=== PATIENT | male | born 1965 | race Caucasian/White ===

== ENCOUNTER 2025-01-08 09:16 | Emergency (ER) | payer SELFPAY ==
--- NOTE | ~2025-01-08 | CT_ITS ---
EXAMINATION: CTA BRAIN/CAROTID DATE: 01/08/2025 10:25 INDICATION: Headache. Diplopia. TECHNIQUE: Computed tomographic angiography (CTA) of the head and neck was performed with 100 mL Omni paque-350 intravenous contrast. Multiplanar reconstructions and maximum intensity projection 3D-recon structions of the carotid arteries and of the intracranial arteries were created by the technologist on a separate workstation. Precontrast CT of the head was also obtained. Automated exposure control and iterative reconstruction technique were employed.The dose-length product was 1711.46 mGy-cm. COMPARISON: None. FINDINGS: Carotid arteries: Visualized aortic arch and the great vessels arising from the arch are normal in caliber with no hemo dynamically significant stenosis or dissection. There is no evident atherosclerotic plaque with 0% st enosis of the right carotid bulb relative to normal distal artery lumen diameter (NASCET criteria). T here is small amount of atherosclerotic plaque with 0% stenosis of the left carotid bulb relative to normal distal artery lumen diameter. No evident plaque or stenosis along the codominant bilateral dennis tebral arteries. Cervical soft tissues are unremarkable. Mild cervical spondylosis. Respiratory motio n in the visualized upper lungs. Small calcified nodule at the right apex consistent with old granulo matous disease. Head: No acute intracranial hemorrhage, acute infarction or abnormal extra axial fluid collection. Ventricl es are normal and symmetric. No mass/mass effect. No abnormally enhancing brain lesions on the post c ontrast imaging. The orbits and mastoid air cells are normal. Mild mucosal thickening the bilateral e thmoid sinuses. Intracranial arteries Vertebral arteries are codominant. Nonhemodynamically significant atherosclerotic plaque at the bilat eral carotid siphons. There is no hemodynamically significant stenosis in the vertebral, basilar and internal carotid arteries. Both A1 and P1 segments are patent. There are no aneurysms identified. Ce rebral arterial arborization appears symmetric. IMPRESSION: 1. No atherosclerotic plaque with 0% stenosis of the right carotid bulb relative to normal distal art seferino lumen diameter (NASCET criteria). 2. Small amount of atherosclerotic plaque with 0% stenosis of the left carotid bulb relative to alverto l distal artery lumen diameter. 3. No acute intracranial process or abnormally enhancing brain lesions. 4. Unremarkable cerebral CT angiogram with no hemodynamically significant stenosis, aneurysm or throm bosis. Reviewed, dictated and finalized at location A. IMPRESSION: 1. No atherosclerotic plaque with 0% stenosis of the right carotid bulb relativ e to normal distal artery lumen diameter (NASCET criteria). 2. Small amount of atherosclerotic plaque with 0% stenosis of the left carotid bulb relative to normal distal artery lumen diameter. 3. No acute intracranial process or abnormally enhancing brain lesions. 4. Unremarkable cerebral CT angiogram with no hemodynamically significant steno sis, aneurysm or thrombosis.
[2025-01-08 09:24] VITALS: BP 188/98; PULSE 76; RESP 16; TEMP 36.4; O2SAT 97
--- OUTSIDE RECORDS SUMMARY | 2025-01-08 09:24 | XMS_ITS | Data Portability ---
Author Organization [facility] [employer], Main Office Address [address] [place] [address] Care Team Providers Care Chemical Cell Changer Name Role Phone ALEJANDRA GAMINO Primary Care Provider [phone] ALEJANDRA GAMINO Referring Provider [phone] Assessment Encounter Date Assessment Date Assessment LastModified by Organization Details LastModified Time 10/18/2022 10/18/2022 Chest pain EKG shows a normal sinus rhythm normal intervals no acute changes. Echo chest x-ray stress test Hypertension continue current therapy Leg pain exam not that remarkable at does have some back pain from time to time MRI lumbar spine nerve conduction test legs ABIs Follow-up 1 month blood work ordered [email or web address] Not available 10/18/2022 21:35:18 11/22/2022 11/22/2022 Cardiology. Lipitor. 81 mg aspirin daily. Chest pain recurs emergency room. Otherwise see me in 3 months [email or web address] Not available 11/25/2022 14:39:34 04/16/2023 04/16/2023 Blood work reviewed EKG reviewed he is asymptomatic he may proceed with his orthopedic surgery [email or web address] Not available 04/16/2023 18:08:49 Plan of Treatment Reminders Order Date Submit Date Provider Last Modified By Organization Details Last Modified Time Details Appointments None recorded. Lab T4, free, serum 2022 023 [facility] (Lab), [address] [place], [address], 12:38:45 TSH, serum or plasma 2022 023 [facility] (Lab), [address] [place], [address], 3 12:38:45 T3, free, serum or plasma 2022 023 [facility] (Lab), [address] [place], [address], 3 09:13:12 CBC w/ auto diff 2022 023 [facility] (Lab), [address] [place], [address], 3 12:38:45 lipid panel, serum 2022 023 [facility] (Lab), [address] [place], [address], 3 12:38:45 CMP, serum or plasma 2022 023 [facility] (Lab), [address] [place], [address], 3 12:38:45 Referral cardiologis t referral - Please schedule with Dr Padilla only. 2022 023 CLAY Padilla MD, [address] [facility], [place], [address], 3 18:53:05 Procedures None recorded. Surgeries None recorded. Imaging electrocard iogram 2022 023 [email or web address] [facility] [address] [facility] [address], [place], [address], 3 17:33:14 US, echocardiog james 2022 023 [facility] (One Call Scheduling), [address] [place], [address], 3 15:11:38 exercise stress test 2022 023 [facility] (One Call Scheduling), [address] [place], [address], 3 11:34:39 XR, chest, 2 view 2022 023 [facility] (One Call Scheduling), [address] [place], [address], 3 12:06:20 nerve conduction study - NCS B/L legs 2022 023 [facility] Scheduling, [address] [facility] [place], [address], 3 15:11:37 Medication Orders Lipitor 10 mg tablet [address]/Pharmacy #[id number], [address] [place], [address], 3 10:52:48 Patient TargetsNo targets recorded. 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 Referring Physician: Alejandra Gamino, Internal Medicine, Encounter Date: 11/22/2022 Results Created Date Observation Date Name Description Value Unit Range Abnormal Flag Note LastModifiedBy Organization Detail LastModifiedTime 04/13/2004/13/2023 CBC/C OMPLE TE BLD COUNT W/DIF F white blood cells 7.5 x10'3 /uL 4.2-10 .8 Not Available [facility] (Lab) [address] [place], [address], 04/13/2023 15:31:29 04/13/20 23 04/13/2023 CBC/C OMPLE TE BLD COUNT W/DIF F red blood cells 4.90 x10'6 /uL 4.10-5 .80 Not Available [facility] (Lab) [address] [place], [address], 04/13/2023 15:31:29 04/13/2004/13/2023 CBC/C OMPLE TE BLD COUNT W/DIF F hemoglobin 14.3 g/dL 13.2-1 7.0 Not Available [facility] (Lab) [address] [place], [address], 04/13/2023 15:31:29 04/13/2004/13/2023 CBC/C OMPLE TE BLD COUNT W/DIF F hematocrit 43.1 % 39.3-5 0.0 Not Available [facility] (Lab) [address] [place], [address], 04/13/2023 15:31:29 04/13/2004/13/2023 CBC/C OMPLE TE BLD COUNT W/DIF F mean red cell volume 88.0 fL 80.0-9 7.0 Not Available [facility] (Lab) [address] [place], [address], 04/13/2023 15:31:29 04/13/2004/13/2023 CBC/C OMPLE TE BLD COUNT W/DIF F mean red cell hemoglobin 29.2 pg 27.0-3 3.0 Not Available [facility] (Lab) [address] [place], [address], 04/13/2023 15:31:29 04/13/2004/13/2023 CBC/C OMPLE TE BLD COUNT W/DIF F mean RBC HGB concentratio n 33.2 g/dL 31.0-3 6.0 Not Available [facility] (Lab) [address] [place], [address], 04/13/2023 15:31:29 04/13/20 23 04/13/2023 CBC/C OMPLE TE BLD COUNT W/DIF F red cell distribution width 14.2 % 11.8-1 5.5 Not Available [facility] (Lab) [address] [place], [address], 04/13/2023 15:31:29 04/13/2004/13/2023 CBC/C OMPLE TE BLD COUNT W/DIF F platelets 302 x10'3 /uL 150-40 0 Not Available [facility] (Lab) [address] [place], [address], 04/13/2023 15:31:29 04/13/2004/13/2023 CBC/C OMPLE TE BLD COUNT W/DIF F mean platelet volume 9.6 fL 9.0-12 .4 Not Available [facility] (Lab) [address] [place], [address], 04/13/2023 15:31:29 04/13/2004/13/2023 CBC/C OMPLE TE BLD COUNT W/DIF F neutrophils 61.1 % 39.0-7 2.0 Not Available [facility] (Lab) [address] [place], [address], 04/13/2023 15:31:29 04/13/2004/13/2023 CBC/C OMPLE TE BLD COUNT W/DIF F lymphocytes 24.9 % 16.0-4 7.0 Not Available [facility] (Lab) [address] [place], [address], 04/13/2023 15:31:29 04/13/2004/13/2023 CBC/C OMPLE TE BLD COUNT W/DIF F monocytes 8.6 % 5.0-12 .0 Not Available [facility] (Lab) [address] [place], [address], 04/13/2023 15:31:29 04/13/20 23 04/13/2023 CBC/C OMPLE TE BLD COUNT W/DIF F eosinophils 4.2 % 1.0-7. 0 Not Available [facility] (Lab) [address] [place], [address], 04/13/2023 15:31:29 04/13/2004/13/2023 CBC/C OMPLE TE BLD COUNT W/DIF F basophils 0.9 % 0.0-2. 0 Not Available [facility] (Lab) [address] [place], [address], 04/13/2023 15:31:29 04/13/2004/13/2023 CBC/C OMPLE TE BLD COUNT W/DIF F immature granulocytes 0.3 % 0.00-0 .50 Not Available [facility] (Lab) [address] [place], [address], 04/13/2023 15:31:29 04/13/2004/13/2023 CBC/C OMPLE TE BLD COUNT W/DIF F neutrophils, absolute count 4.56 x10'3 /uL 1.5-8. 0 Not Available [facility] (Lab) [address] [place], [address], 04/13/2023 15:31:29 04/13/2004/13/2023 CBC/C OMPLE TE BLD COUNT W/DIF F lymphocytes, absolute count 1.86 x10'3 /uL 1.07-3 .43 Not Available [facility] (Lab) [address] [place], [address], 04/13/2023 15:31:29 04/13/2004/13/2023 CBC/C OMPLE TE BLD COUNT W/DIF F monocytes, absolute count 0.64 x10'3 /uL 0.29-0 .99 Not Available [facility] (Lab) [address] [place], [address], 04/13/2023 15:31:29 04/13/2004/13/2023 CBC/C OMPLE TE BLD COUNT W/DIF F eosinophils, absolute count 0.31 x10'3 /uL 0.02-0 .53 Not Available [facility] (Lab) [address] [place], [address], 04/13/2023 15:31:29 04/13/2004/13/2023 CBC/C OMPLE TE BLD COUNT W/DIF F basophils, absolute count 0.07 x10'3 /uL 0.01-0 .08 Not Available [facility] (Lab) [address] [place], [address], 04/13/2023 15:31:29 04/13/2004/13/2023 CBC/C OMPLE TE BLD COUNT W/DIF F immature granulocytes ,absolute 0.02 x10'3 /uL 0.00-0 .05 Not Available [facility] (Lab) [address] [place], [address], 04/13/2023 15:31:29 04/13/2004/13/2023 CBC/C OMPLE TE BLD COUNT W/DIF F nucleated red blood cells 0.0 % -0 Not Available [facility] (Lab) [address] [place], [address], 04/13/2023 15:31:29 04/13/2004/13/2023 CBC/C OMPLE TE BLD COUNT W/DIF F NRBC# 0.00 x10'3 /uL Not Available [facility] (Lab) [address] [place], [address], 04/13/2023 15:31:29 04/13/2004/13/2023 BASIC METAB OLIC PANEL sodium 138 mmol/ L 137-14 5 Not Available [facility] (Lab) [address] [place], [address], 04/13/2023 16:18:27 04/13/2004/13/2023 BASIC METAB OLIC PANEL potassium 4.1 mmol/ L 3.5-5. 1 Not Available [facility] (Lab) [address] [place], [address], 04/13/2023 16:18:27 04/13/2004/13/2023 BASIC METAB OLIC PANEL chloride 101 mmol/ L 98-107 Not Available [facility] (Lab) [address] [place], [address], 04/13/2023 16:18:27 04/13/2004/13/2023 BASIC METAB OLIC PANEL carbon dioxide 28 mmol/ L 22-30 Not Available [facility] (Lab) [address] [place], [address], 04/13/2023 16:18:27 04/13/2004/13/2023 BASIC METAB OLIC PANEL anion gap 13.1 mmol/ L 14-22 low Not Available [facility] (Lab) [address] [place], [address], 04/13/2023 16:18:27 04/13/2004/13/2023 BASIC METAB OLIC PANEL glucose 94 mg/dL 70-99 Not Available [facility] (Lab) [address] [place], [address], 04/13/2023 16:18:27 04/13/2004/13/2023 BASIC METAB OLIC PANEL BUN 11 mg/dL 8-19 Not Available [facility] (Lab) [address] [place], [address], 04/13/2023 16:18:27 04/13/2004/13/2023 BASIC METAB OLIC PANEL creatinine 0.78 mg/dL 0.66-1 .25 Not Available [facility] (Lab) [address] [place], [address], 04/13/2023 16:18:27 04/13/2004/13/2023 BASIC METAB OLIC PANEL GFR >60 Refer ence Range : Logan ge GFR Healt hy Adult : >60 mL/mi n/1.7 3 m2 Chron ic Kidne y Disea se: 15-60 mL/mi n/1.7 3 m2 Kidne y Failu re: <15/m L/min /1.73 m2 www.n iddk. nih.g ov The MDRD study equat ion has not been valid ated in child josette <18 years of age; pregn ant women ; the elder ly >85 years of age; or in some racia l or ethni c subgr oups, such as Hispa nics. Outsi de the valid ated emmanuel eters , estim ated GFR is less accur ate, requi ring clini shanique judgm ent on a case- by-ca se basis . Clini shanique inter preta tion for other races and ages must be made by the clini sedrick. The MDRD study equat ion has not been valid ated for the evalu ation of serum creat inine relat ed to nutri kristi l statu s or medic ation usage . For perso ns <18 years of age, a pedia tric GFR calcu lator is avail able on the [facility] websi te: https ://alesha bui.maryana ware.o rg/pr evon huaal s/kdo qi/gf r_cal culat or Not Available [facility] (Lab) [address] [place], [address], 04/13/2023 16:18:27 04/13/2004/13/2023 BASIC METAB OLIC PANEL calcium 9.7 mg/dL 8.4-10 .2 Not Available [facility] (Lab) [address] [place], [address], 04/13/2023 16:18:27 04/13/20 23 04/13/2023 HEMOG LOBIN A1C HA1C 5.9 % 4.0-6. 0 Diabe obdulio Scree tamika Crite amanda: <5.7% Consi stent with absen ce of diabe obdulio 5.7-6 .4% Consi stent with incre ased risk for diabe obdulio (pred iabet es) >OR=6 .5% Consi stent with diabe obdulio REFER ENCE: Diabe obdulio Care 2016, 39(Cortés ppl.1 ):s13 -s22 Not Available [facility] (Lab) [address] [place], [address], 04/13/2023 22:22:59 04/18/20 22 04/14/2022 home sleep testi ng (PROC ) No observ ation record ed. [id number] [facility] [address] [place], [address], 08/30/2022 06:08:38 06/05/20 22 06/01/2022 polys omnog james, titra tion study No observ ation record ed. [id number] Not Available 08/30/2022 06:08:38 06/05/20 22 06/01/2022 home sleep testi ng (PROC ) No observ ation record ed. [id number] [facility] Orders [address] [place], [address], 08/30/2022 06:08:38 10/19/19 23 elect rocar diogr am No observ ation record ed. cyahl [facility] Internal Med [address] [facility] [address], [place], [address], 10/18/2022 17:00:33 10/20/19 23 10/18/2022 elect rocar diogr am No observ ation record ed. BARCODE [facility] Internal Med [address] [facility] [address], [place], [address], 10/19/2022 10:12:22 10/26/19 23 10/25/2022 exerc ise stres s test No observ ation record ed. [email or web address] [facility] [address] [place], [address], 11/23/2022 12:33:44 10/26/19 23 10/25/2022 XR, chest , 2 view [facility] [address] [place] [address] [phone] Patitimur t Name: ROLLY POLK Access ion #: [id number] Sex: M : 1964 6 Locati on: MOP Attend ing Physic jamie: JAZZY GAMINO Orderi ng Physic jamie: JAZZY GAMINO Exam Date: 9:48 AM Exam Name: XR CHEST 2V Admitt ing Diagno sis(es ): RADIOL OGY REPORT - FINAL EXAM: XR CHEST 2V HISTOR Y: CHEST PAIN 57-yea r-old male with chest tightn ess. COMPAR SILVANA: None availa ble. TECHNI QUE: 2 views of the chest were perfor med. FINDIN GS: No pneumo thorax , pleura l effusi ons, pulmon jenn edema, or consol idativ e infilt rates. The heart is not enlarg ed. No fractu res are identi fied about the bony thorax . There is mild thorac ic degene rative disc diseas e. There is mildly exagge rated thorac ic kyphos is. IMPRES DARBY: Page 1 of 2 [facility] Suzie t Name: ROLLY POLK Access ion #: [id number] Sex: M : 1964 6 Exam Date: 9:48 AM Exam Name: XR CHEST 2V Admitt ing Diagno sis(es ): No acute intrat horaci c proces s. Create d and electr onical ly signed by: Quinn brown MD Signed Date: 11:03 AM (CT) Dictat ed by: Quinn brown MD DD: 11:03 AM (CT) DT: 11:03 AM (CT) Page [address] (Imaging) [address] [place], [address], 11/23/2022 12:33:45 11/23/19 23 11/14/2022 nerve condu ction study No observ ation record ed. [facility] Scheduling 1 [facility] [place], [address], 11/22/2022 15:11:37 11/23/19 23 10/25/2022 (JONATHAN) ankle brach ial index * No observ ation record ed. [facility] (One Call Scheduling) [address] [place], [address], 11/22/2022 15:11:38 11/23/19 23 10/25/2022 US, echoc ardio gram No observ ation record ed. [facility] (One Call Scheduling) [address] [place], [address], 11/22/2022 15:11:38 12/16/19 23 12/12/2022 US, echoc ardio gram No observ ation record ed. [email or web address] [facility] [address], [place], [address], 04/16/2023 11:05:11 01/10/20 23 01/09/2023 SPECT , myoca rdial perfu darby, singl e No observ ation record ed. [email or web address] [facility] [address], [place], [address], 04/16/2023 11:06:50 04/13/20 23 04/13/2023 elect raquel avendano am No observ ation record ed. BARCODE Not Available 2022 14:55:32 Result Notes Documentation Provider Name and Address Organization Details Recorded Time Xr, Chest, 2 View : [facility] [address] [place] [address] Patient Name: ERICK POLK Sex: M : 1965 Location: [facility] Attending Physician: ALEJANDRA GAMINO Ordering Physician: ALEJANDRA GAMINO Exam Date: 10/25/2022 9:48 AM Exam Name: XR CHEST 2V Admitting Diagnosis(es): RADIOLOGY REPORT - FINAL EXAM: XR CHEST 2V HISTORY: CHEST PAIN 57-year-old male with chest tightness. COMPARISON: None available. TECHNIQUE: 2 views of the chest were performed. FINDINGS: No pneumothorax, pleural effusions, pulmonary edema, or consolidative infiltrates. The heart is not enlarged. No fractures are identified about the bony thorax. There is mild thoracic degenerative disc disease. There is mildly exaggerated thoracic kyphosis. IMPRESSION: Page 1 of 2 [facility] Patient Name: ERICK POLK Sex: M : 1965 Exam Date: 10/25/2022 9:48 AM Exam Name: XR CHEST 2V Admitting Diagnosis(es): No acute intrathoracic process. Created and electronically signed by: Quinn Beckford MD Signed Date: 10/25/2022 11:03 AM (CT) Dictated by: Quinn Beckford MD (CT) (CT) Page 2 of 2 KIRAN Lu [place] [facility] 11/23/2022 12:33:45 Problems Name Problem SNOMED Code Status Onset Date Resolution Date Notes Provider Name and Address Organization Details Recorded Time Eruption 566871454 Active 2021 Not Available [facility] 3 06:54:39 Hypertrig lyceridem ia 495212835 Active 2018 Not Available [facility] 3 06:54:40 Tear of medial meniscus of knee 145395393 Active 2021 Not Available [facility] 3 06:54:40 Pain in left foot 73120917841 9107 Active 2020 Not Available [facility] 3 06:54:40 Osteoarth ritis 791787573 Active 2021 Not Available [facility] 3 06:54:40 Ingrowing toenail 501379650 Active 2021 Not Available [facility] 3 06:54:40 Hyperlipi demia 34570319 Completed KIRAN Cortés, [place] [facility] 3 15:03:28 Essential hypertens ion 66157343 Active 2022 Not Available [facility] 3 06:54:40 Sleep apnea 64277779 Active 2021 Not Available [facility] 3 06:54:40 Fatigue 15899458 Active Not Available [facility] 3 06:54:40 Dystrophi a unguium 52177425 Active 2021 Not Available [facility] 3 06:54:40 Chest pain 44767227 Active 2022 Not Available [facility] 3 06:54:39 Pain in bilateral legs 45091266014 347303 Active 2022 Not Available [facility] 3 06:54:39 Hyperlipi demia 18790825 Active 2022 Not Available [facility] 3 06:54:40 Notes:[facility] home sleep study 04/14/22 AHI = 20, supine AHI = 22 [facility] titration sleep study 06/01/22 sleep onset = 8.5 minutes, REM onset = 48.5 minutes, [employer] medium Vitera full face mask @ 5-20 cmH2O, PLMI = 66 Medical History: Early REM onset Obesity with mod OSAHS, AHI = 20, 04/14/22, on autoCPAP c/o IVRC Hypertension Hypertriglyceridemia PLMD OA Problem Notes None recorded. Procedures Surgical History Date Name Laterality Status Provider Name and Address Organization Details Recorded Time 09/14/19 18 Orthopedic Surgery completed Not Available [facility] 08/30/2022 05:55:53 02/03/20 11 Colonoscopy completed Not Available [facility] 08/31/19 05:55:53 Hernia Repair completed Not Available [facility] 08/30/2022 05:55:53 Rotator cuff surgery completed Not Available [facility] 08/30/2022 05:55:53 Imaging Results None recorded. Procedure Notes None recorded. Medical Equipment None Reported. Allergies No known drug allergies Medications Name Sig Start Date Stop Date Status Note LastModified by Organization Details LastModified Time diltiazem ER 180 mg capsule,24 hr,extende d release Take 1 capsule every day by oral route. active Not Available Not Available No t Available tizanidine 4 mg tablet Take 1 tablet every day by oral route at bedtime. active Not Available Not Available No t Available meloxicam 15 mg tablet TAKE 1 TABLET BY MOUTH ONCE A DAY NEEDED FOR PAIN active Not Available Not Available No t Available lisinopril 20 mg tablet qd 12/05 completed Not Available Not Available Not Available Medrol (Paul) 4 mg tablets in a dose pack Take 1 dose pk by oral route as directed . 10/27 completed Not Available Not Available Not Available bupivacain e HCl 0.5 % (5 mg/mL) injection solution Take 20 mg by injectio n route. 07/19 completed Not Available Not Available Not Available prednisone 20 mg tablet Take 2 tablets every day by oral route for 7 days. 03/22 completed Not Available Not Available Not Available amlodipine 5 mg tablet TAKE 1 TABLET BY MOUTH EVERY DAY active Not Available Not Available No t Available hydrocodon e 10 mg-acetami nophen 325 mg tablet TAKE 1 TABLET BY MOUTH EVERY 6 HOURS NEEDED FOR PAIN active Not Available Not Available No t Available amoxicilli n 500 mg tablet TK 1 T PO TID FOR 7 DAYS active Not Available Not Available No t Available Kenalog 10 mg/mL suspension for injection In office injectio n administ ered by the provider 07/19 completed [facility]: [id number] 94-20 Not Available Not Available Not Available hydrocorti sone 1 % topical cream APPLY TO RASH QID PRN active Not Available Not Available No t Available triamcinol one acetonide 0.1 % topical ointment APPLY TOPICALL Y TO THE AFFECTED AREA EVERY 12 HOURS NEEDED 03/22 completed Not Available Not Available Not Available prednisone 50 mg tablet TAKE 1 TABLET BY MOUTH ONCE A DAY 02/01 completed Not Available Not Available Not Available diclofenac sodium 75 mg tablet,del ayed release Take 1 tablet twice a day by oral route. 04/12 completed Not Available Not Available Not Available mupirocin 2 % topical ointment APPLY TO AFFECTED AREA THREE TIMES A DAY FOR 7 DAYS 04/12 completed Not Available Not Available Not Available Lipitor 10 mg tablet Take 1 tablet every day by oral route. 04/16 completed pt states not taking Not Available Not Available Not Available loratadine 10 mg tablet TK 1 T PO QAM PRN active Not Available Not Available No t Available naproxen 500 mg tablet TAKE 1 TABLET BY MOUTH TWICE DAILY WITH FOOD 02/23 completed Not Available Not Available Not Available amoxicilli n 875 mg-potassi um clavulanat e 125 mg tablet TAKE 1 TABLET EVERY 12 HOURS FOR 10 DAYS 02/17 completed Not Available Not Available Not Available lidocaine (PF) 10 mg/mL (1 %) injection solution In office injectio n administ ered by the provider 06/10 completed [facility]: [id number] Not Available Not Available Not Available Lovaza 1 gram capsule Take 1 capsule twice a day by oral route. active Not Available Not Available No t Available Drysol 20 % topical solution Apply to the bottom of both feet every morning as needed 09/23 completed Not Available Not Available Not Available Vitals Date Recorded Body mass index (BMI) Body height Heart rate Body temperature Body weight Systolic And Diastolic Provider Name and Address Organization Details Last Updated DateTime 3 36.7 kg/m2 177.8 cm 94 /min 98.1 [degF] 645613. 65 g 124/78 mm[Hg] Not Available [facility] 3 05:57:08 Date Recorded Body height Body mass index (BMI) Body weight Body temperature Heart rate Systolic And Diastolic Provider Name and Address Organization Details Last Updated DateTime 3 177.8 cm 35.9 kg/m2 970264. 09 g 97.7 [degF] 95 /min 120/90 mm[Hg] KIRAN Lu [place] [employer] [facility] 3 15:49:09 Date Recorded Body height Body mass index (BMI) Body weight Body temperature Heart rate Systolic And Diastolic Provider Name and Address Organization Details Last Updated DateTime 3 177.8 cm 35.3 kg/m2 505844. 72 g 98.2 [degF] 81 /min 126/86 mm[Hg] KIRAN LuS [place] [employer] [facility] 3 14:14:30 Date Recorded Body mass index (BMI) Body height Heart rate Body temperature Body weight Systolic And Diastolic Provider Name and Address Organization Details Last Updated DateTime 2 34.4 kg/m2 177.8 cm 76 /min 97.3 [degF] 177037. 17 g 120/84 mm[Hg] Not Available [facility] 3 05:57:08 Date Recorded Body height Body mass index (BMI) Body weight Body temperature Heart rate Oxygen saturation Oxygen saturation in Arterial blood by Pulse oximetry Systolic And Diastolic Provider Name and Address Organization Details Last Updated DateTime 3 177.8 cm 36.4 kg/m2 331769. 46 g 97.9 [degF] 86 /min 98 % 98 % 122/84 mm[Hg] Kathryn Carias RN [facility] [employer] [facility] 3 10:22:38 Social History Question Answer Notes LastModified by Organizat ion Details LastModified Time Tobacco Smoking Status Never Smoker Not Available [facility]/30/[facility]22 05:53:49 Do You Have An Advance Directive? No MIGRATION.[id number] 0400 Information not available 08/30/2022 Do You Wear A Helmet When Biking? No MIGRATION.774030 1128 Information not available 08/30/2022 What Is Your Level Of Caffeine Consumption? Moderate MIGRATION.575583 5798 Information not available 08/30/2022 How Much Tobacco Do You Chew? None MIGRATION.874102 9779 Information not available 08/30/2022 In The 14 Days Before Symptom Onset, Have You Had Close Contact With A Laboratory-confir med COVID-19 While That Case Was Ill? No MIGRATION.985202 3741 Information not available 08/30/2022 In The 14 Days Before Symptom Onset, Have You Had Close Contact With A Person Who Is Under Investigation For COVID-19 While That Person Was Ill? No MIGRATION.193297 7167 Information not available 08/30/2022 What Type Of Diet Are You Following? REGULAR MIGRATION.961698 4140 Information not available 08/30/2022 Which Illicit Or Recreational Drugs Have You Used? None MIGRATION.281895 1932 Information not available 08/30/2022 What Is The Highest Grade Or Level Of School You Have Completed Or The Highest Degree You Have Received? [id number] MIGRATION.589409 7285 Information not available 08/30/2022 Have There Been Any Changes To Your Family Or Social Situation? No MIGRATION.825952 3500 Information not available 08/30/2022 What Is The Fluoride Status Of Your Home? Unknown MIGRATION.713550 2317 Information not available 08/30/2022 Are There Any Guns Present In Your Home? Yes MIGRATION.040891 9018 Information not available 08/30/2022 Do You Use Insect Repellent Routinely? No MIGRATION.066204 2610 Information not available 08/30/2022 Where Do You Live? [facility] MIGRATION.144535 3096 Information not available 08/30/2022 Do You Have A Medical Power Of Record Librarian? No MIGRATION.601943 8373 Information not available 08/30/2022 What Was The Date Of Your Most Recent Tobacco Screening? 04/16/2023 [email or web address] Information not available 04/16/2023 Have You Ever Been Counseled For Unhealthy Alcohol Use? No MIGRATION.916345 6194 Information not available 08/30/2022 Do You Have Any Pets? Yes MIGRATION.322186 8357 Information not available 08/30/2022 What Is Your Relationship Status? MIGRATION.956630 9455 Information not available 08/30/2022 Do You Use Your Seat Belt Or Car Seat Routinely? Yes MIGRATION.757522 3586 Information not available 08/30/2022 Do You Have Smoke And Carbon Monoxide Detectors In Your Home? Yes MIGRATION.225730 6842 Information not available 08/30/2022 Are You Passively Exposed To Smoke? No MIGRATION.789382 2830 Information not available 08/30/2022 Are There Any Smokers In Your House? No MIGRATION.693117 6842 Information not available 08/30/2022 How Much Tobacco Do You Smoke? No MIGRATION.411591 5740 Information not available 08/30/2022 What Types Of Sporting Activities Do You Participate In? None MIGRATION.174438 3339 Information not available 08/30/2022 Do You Use Sunscreen Routinely? No MIGRATION.360830 7423 Information not available 08/30/2022 Has Tobacco Cessation Counseling Been Provided? No MIGRATION.753222 4724 Information not available 08/30/2022 How Many Years Have You Smoked Tobacco? 0 MIGRATION.109313 5090 Information not available 08/30/2022 Have You Recently Traveled Abroad? No MIGRATION.486128 2610 Information not available 08/30/2022 Do You Have Any Dietary Restrictions? No MIGRATION.187661 7414 Information not available 08/30/2022 Sex: Male Functional Status Question Answer Note LastModified by Organizat ion Details LastModified Time Do you use any illicit or recreational drugs? No MIGRATION.741316 9135 Information not available 08/30/2022 Do you or have you ever used any other forms of tobacco or nicotine? No MIGRATION.812368 2403 Information not available 08/30/2022 What is your level of alcohol consumption? Occasional MIGRATION.102249 2828 Information not available 08/30/2022 Do you or have you ever used smokeless tobacco? 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 Never used electronic cigarettes MIGRATION.552458 5351 Information not available 08/30/2022 What is your exercise level? Occasional MIGRATION.549801 0136 Information not available 08/30/2022 Mental Status Question Answer Note LastModified by Organizat ion Details LastModified Time Do you feel stressed (tense, restless, nervous, or anxious, or unable to sleep at night)? [id number] MIGRATION.[id number] 6 Information not available 08/30/2022 Family History Relationship Description Onset Age of this Age Resolved Age Notes LastModified by Organization Details LastModified Time Mother Diabetes mellitus MIGRATION.[id number] Not available 08/30/2022 05:55:54 Mother Essential hypertension MIGRATION.578 [id number] Not available 08/30/2022 05:55:55 Mother Malignant tumor of breast deceas ed MIGRATION.861 0243164 Not available 08/30/2022 05:55:55 Father Diabetes mellitus MIGRATION.545 [id number] Not available 08/30/2022 05:55:55 Son Essential hypertension MIGRATION.779 [id number] Not available 08/30/2022 05:55:55 Medical History Condition Response NERVE DISEASE N BLINDNESS N RHEUMATIC FEVER N KIDNEY STONES N BLADDER PROBLEMS N MRSA N OTHER # 1 N POLIO N LUNG DISEASE/DISORDER N RADIATION / CHEMOTHERAPY N COPD N Other # 2 N BLOOD DISEASES N SURGERY N EAR OR HEARING PROBLEMS N MUMPS N BOWEL PROBLEMS N DEPRESSION (INCLUDING POST ) N STROKE/TIA N ULCERS N BENIGN PROSTATIC HYPERPLASIA N MEASLES N MYOCARDIAL INFARCTION N OBESITY N GERD/NAUSEA N ANEURYSM N URINARY/BLADDER/KIDNEY PROBLEMS N CORONARY ARTERY DISEASE (CAD) N ADDICTION CONCERNS N ENDOMETRIOSIS N Impotence N USE OF BLOOD THINNERS N SKIN PROBLEMS N GASTROINTESTINAL DISORDER N PERIPHERAL VASCULAR DISEASE N MUSCLE,JOINT OR BONE PROBLEMS N GASTROINTESTINAL BLEEDING N BLOOD CLOTS N ASTHMA N CATARACTS N ERECTILE DYSFUNCTION N VARICOSITIES N GI PROBLEMS N Low Testosterone N INFERTILITY N AIDS/HIV N CHEMOTHERAPY / RADIATION N LIVER DISEASE N MALE HYPOGONADISM N HYPERTENSION Y Deficiency N ANXIETY DISORDER N BLOOD TRANSFUSION N ANEMIA/BLOOD DISORDER N CHRONIC EAR INFECTIONS N BRONCHITIS N TUBERCULOSIS N GLAUCOMA N FOOT PROBLEM N DIVERTICULITIS N SLEEP APNEA N CHICKENPOX N INFECTIOUS DISEASE N HEART ARRHYTHMIA N PROSTATE N INSOMNIA N HIGH CHOLESTEROL / HYPERLIPIDEMIA Y HYPERTHYROIDISM N EYE PROBLEMS N NEUROLOGICAL PROBLEMS N EDEMA N CHRONIC PAIN SYNDROME N HYPOTHYROIDISM N CAROTID BLOCKAGE N CONSTIPATION N BACK / NECK PROBLEMS N HAVE YOU BEEN HOSPITALIZED OR SEEN IN [facility] ER IN THE PAST YEAR ? N ATHEROSCLEROSIS N BREAST PROBLEMS N DIALYSIS N ECZEMA N OSTEOPOROSIS N ARTHRITIS N APPENDICITIS N DIABETES, TYPE N BAD TEETH N ENT N HEARTBURN / REFLUX N AUTISM SPECTRUM DISORDER (ASD) N HEPATITIS / LIVER DISEASE N GOUT N SLEEP DISORDER N ALZHEIMER'S DISEASE N Brain Problems N HERPES N DEMENTIA N HEADACHES/MIGRAINES N SEIZURES/EPILEPSY N VASCULAR DISEASE N PACEMAKER N Blood Disorder N DIZZINESS N HEART DISEASE/HEART PROBLEMS N KIDNEY DISEASE N MULTIPLE SCLEROSIS N CARDIAC ARRHYTHMIA N CANCER: SPECIFY N ATRIAL FIBRILLATION N Gall Stones N PULMONARY EMBOLISM N AUTOIMMUNE DISEASE N Immunizations Vaccine Type Date Status Note Provider Nam e and Address Organization Details Recorded Time COVID-19, mRNA, LNP-S, PF, 30 mcg/0.3 mL dose 12/13/2020 completed Not Available [facility] 3 06:54:40 COVID-19, mRNA, LNP-S, PF, 30 mcg/0.3 mL dose 11/22/2020 completed Not Available [facility] 3 06:54:40 Past Encounters Encounter ID Performer Location Encounter Start Date Encounter Closed Date Diagnosis/Indication Diagnosis SNOMED-CT Code Diagnosis ICD10 Code Diagnosis Note [id number] Alejandra Gamino MD [facility] [place] [address] [address] 09/23/2020 00:00:00 09/23/2020 10:09:39 [id number] Alejandra Gamino MD [facility] Internal [facility] [address] [place] [address] [address] [address] 10/27/2020 00:00:00 11/21/2020 15:02:09 [id number] [facility] [place] [address] [place] [address] 12/16/2020 00:00:00 12/16/2020 09:48:13 [id number] Alejandra Gamino MD [facility] Internal [facility] [address] [address] 02/23/2021 00:00:00 02/23/2021 22:42:08 [id number] Alejandra Gamino MD [facility] Internal [facility] [address] [address] 04/18/2021 00:00:00 04/18/2021 22:14:44 [id number] Alejandra Gamino MD [facility] [address] [place] [address] 05/31/2021 00:00:00 06/01/2021 22:51:17 [id number] Chino Box MD [facility] [place] [address] [place] [address] 06/09/2021 00:00:00 06/09/2021 11:42:02 [id number] Alejandra Gamino MD [facility] Internal [facility] [address] [address] 06/10/2021 00:00:00 07/03/2021 23:00:48 [id number] Chino Box MD [facility] [place] [address] [place] [address] 06/21/2021 00:00:00 06/21/2021 14:22:13 [id number] Chino Box MD [facility] [place] [address] [place] [address] 07/19/2021 00:00:00 07/19/2021 14:16:36 [id number] Jesu Hills MD [facility] [place] [address] [place] [address] 08/22/2021 00:00:00 09/19/2021 14:40:22 [id number] Jesu Hills MD [facility] [place] [address] [place] [address] 09/19/2021 00:00:00 09/19/2021 14:33:47 [id number] Alejandra Gamino MD [facility] Internal Med [facility] [address] [facility], [address] [address] 11/21/2021 00:00:00 11/28/2021 14:04:03 [id number] [facility] [place] [address] [place] [address] 02/13/2022 00:00:00 02/14/2022 11:51:13 [id number] Alejandra Gamino MD [facility] Internal [facility] [address]43 [facility], [address] [address] 03/22/2022 00:00:00 03/22/2022 10:44:28 [id number] Alejandra Gamino MD [facility] Internal [facility] 15 [address] [facility], [address] [address] 04/12/2022 00:00:00 04/12/2022 21:38:47 [id number] Alejandra Gamino MD [facility] Internal [facility] [address] [facility], [address] [address] 08/09/2022 00:00:00 08/09/2022 21:48:14 [id number] Alejandra Gamino MD [facility] 15 2043 [facility], [address] [address] 10/18/2022 15:15:49 10/18/2022 17:14:46 Essential hypertension 45907310 I10 Chest pain 72624049 R07. 9 Pain in bi lateral legs 5219706818 1457563 M79.604 [id number] Alejandra Gamino MD [facility] Internal Med [facility] [address] [facility], [facility] [address] [place] [address] 11/22/2022 13:49:18 11/22/2022 15:06:36 Essential hypertension 19463250 I10 Hyperlipidemia 67348305 E78.5 Chest pain 78564766 R07. 9 [id number] Alejandra Gamino MD [facility] Internal Med [facility] [address] [facility], [facility] [address] [place] [address] 04/16/2023 10:13:06 04/16/2023 11:15:34 Essential hypertension 81684974 I10 Hyperlipidemia 15785261 E78.5 Pre-surger y evaluation 505902288 Z01.818 Health Concerns Section Related Observation LastModified by Organization Detai ls LastModified Time None Recorded Concern Status LastModified by Organization Details LastModified Time None Recorded Advance Directives Directive N: Payers Insurance Date Sequence Insurance Name Policy Number Policy Shanks Covered Member ID Shanks Member ID Guarantor Name 10/23/2023 [facility] Erick Polk SELF SELF Erick Polk 12/13/2023 1 [facility] (POS II) [id number] Erick Polk [id number] Erick Polk Notes Date Note Type Note Provider Name and Address Organization Details Recorded Time 10/18/2022 text/html 1. He has been h ave some centralized chest pain and pressure for several weeks not escalating comes on with exertion goes away with rest but not always coming at the time of exertion. He has not had any syncope or presyncope.2. He has been having pain in his legs at the end of the day during the day when he is working there fine but he says once he is done they does feel wiped out3. Hypertension no headache no dizziness Alejandra Gamino MD [address] [facility], [place], [address], [facility] [email or web address] 10/18/2022 21:35:33 11/22/2022 text/html Chest pain stres s test or Juan Diego depression has 1 episode sinceBlood work LDLs high will start LipitorChest x-ray unremarkableEcho pending Alejandra Gamino MD [address], [address], [place], [address], [facility] [employer] [facility] 11/25/2022 14:39:50 04/16/2023 text/html going to have orthopedic surgery no chest pain or shortness of breath Alejandra Gamino MD [address], [address], [place], [address], [facility] [employer] [facility] 04/16/2023 18:09:10
--- OUTSIDE RECORDS SUMMARY | 2025-01-08 09:24 | XMS_ITS | Referral Summary ---
Author Organization [facility] Address [address] [address] Care Team Providers Care Corrugator Operator Name Role Phone Ad Gamino MD Primary Care Provider + [phone] Allergies No known active allergies Medications amLODIPine (NORVASC) 5 mg tablet Take 1 tablet (5 mg total) by mouth daily Active atorvastatin (LIPITOR) 20 mg tablet Take 1 tablet (20 mg total) by mouth daily 12/04/2023 Active clopidogreL (PLAVIX) 75 mg tablet Take 1 tablet (75 mg total) by mouth daily 12/04/2023 Active aspirin 81 mg chewable tablet Take 1 tablet (81 mg total) by mouth daily 11/01/2023 Active loratadine (CLARITIN) 10 mg tablet Take 1 tablet (10 mg total) by mouth daily Active Social History Tobacco Use Types Packs/Day Years Used Date Smoking Tobacco: Never Tobacco Cessation:Counseling Given: Not Answered AUDIT-C Answer Date Recorded Frequency of Alcohol Consumption Not on file 01/22/2024 Q2: How many drinks containi ng alcohol do you have on a typical day when you are drinking? 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 Gender Identity Not on file Sexual Orientation Not on file Last Filed Vital Signs Vital Sign Reading Time Taken Comments Blood Pressure 141/83 01/22/2024 8:32 AM CDT Pulse 71 01/22/2024 8:32 AM CDT Temperature 36.5 C (97.7 F) 01/22/2024 7:34 AM CDT Respiratory Rate 16 01/22/2024 8:32 AM CDT Oxygen Saturation 97% 01/22/2024 8:32 AM CDT Inhaled Oxygen Concentration - - Weight 104.3 kg (230 lb) 01/22/2024 7:34 AM CDT Height 180.3 cm (5' 11) 01/22/2024 7:34 AM CDT Body Mass Index 32.08 01/22/2024 7:34 AM CDT Plan of Treatment Not on file Goals Goal Patient Goal Type Associated Problems Recent Progress Patient-Stated? Author CCM Chronic Pain Care Plan Chronic Care Management On track(2023 7:36 AM CDT) Xena Miller RN Note: Problem: Chronic Pain Goals: 1. Minimize further functional decline 2. Maximize quality of life 3. Control pain Strategies: - Activity/exercise program recommendation - Conservative stepwise pain medicine strategy with multi-disciplinary approach - Recommend healthy lifestyle strategies and compensatory methods as needed Insurance [facility] [employer] Care Teams Corrugator Operator Relationship Specialty Start Date End Date Ad Gamino MD PCP - General 01/22/17
--- OUTSIDE RECORDS SUMMARY | 2025-01-08 09:24 | XMS_ITS | Clinical Summary ---
Author Organization [facility] Address [address] [address] Care Team Providers Care [employer]ed [employer] Boards Router Name Role Phone Ad Gamino MD Primary Care Provider + [phone] Allergies No known active allergies Medications amLODIPine [...] (10 mg total) by mouth daily Active Surgical History Surgery Date Site/Laterality Comments CO NJX AA&/STRD TFRML EPI CERVICAL/THORACIC 1 LEVEL Corticosteroid Inj Transforaminal Approach Cervical W/ Fluoroscopic Guidance - (Added by TW Conv) CO INJ CERV/THORAC,W/WO CNTRST Corticosteroid Injection Interlaminar Approach Cervical - (Added by TW Conv) SHOULDER SURGERY TOTAL KNEE ARTHROPLASTY Medical History Medical History Date Comments Closed fracture of metatarsal bone Metatarsal fracture - (Added by TW Conv) Personal history of other di seases of the musculoskeletal system and connective tissue History of rotator cuff tear - (Added by TW Conv) Chest pain Hypertension Arthritis Headache Family History Medical History Relation Name Comments Arthritis Father Family history of arthritis - (Added by TW Conv) Cancer Father Family history of malignant neoplasm - (Added by TW Conv) Diabetes Father Family history of diabetes mellitus - (Added by TW Conv) Heart disease Father Family history of cardiac disorder - (Added by TW Conv) Kidney disease Father Family histor y of kidney disease - (Added by TW Conv) Arthritis Mother Family history of arthritis - (Added by TW Conv) Diabetes Mother Family history of diabetes mellitus - (Added by TW Conv) Heart disease Mother Family history of cardiac disorder - (Added by TW Conv) Hypertension Mother Family history of hypertension - (Added by TW Conv) Relation Name Status Comments Father Mother Social History Tobacco Use Types Packs/Day Years [...] on file Legal Sex Male 1:17 PM RISK MGR Gender Identity Not on file Sexual Orientation Not on file Obstetrics History Last Filed Vital Signs Vital Sign Reading [...] 01/22/2024 7:34 AM CDT Plan of Treatment Health Maintenance Due Date Last Done Comments Colon Cancer Screening-Colonoscopy 1964 Depression Screening 1964 Hepatitis C Screening 1964 Prostate Cancer Screening-PSA 1964 DTaP/Tdap/Td Vaccine (1 - Tdap) 1975 Hepatitis B Screening 1982 Regular Well Visit/Exam 18-64 1982 Pneumococcal vaccine <65 (1 of 2 - PCV) 1983 Zoster Vaccine (1 of 2) 2014 Covid-19 Vaccine ( season) 2024, 11/22/2020 Influenza Vaccine (Season Ended) 2025 Goals Goal Patient Goal Type Associated Problems [...] strategies and compensatory methods as needed Insurance [facility] Care Teams Printed Circuit Boards Router Relationship Specialty Start Date End Date Ad Gamino MD PCP - General 01/22/17
--- OUTSIDE RECORDS SUMMARY | 2025-01-08 09:24 | XMS_ITS | Data Portability ---
Author Organization HARLEEN VENESSAFrieda Alvares Address [address] [facility] [place] [address] Care Team Providers Care Med Dir Name Role Phone ALEJANDRA GAMINO Primary Care Provider Assessment Encounter Date Assessment Date Assessment LastModified by Organization Details LastModified Time 10/29/2023 10/29/2023 Obesity caloric restriction healthy life style instructions provided. Hypertension continue current therapy blood pressure controlled. Neck pain refer to pain management at [facility] Dr. Guzman who the patient saw before. Obtain records from previous clinic. Follow-up with me in 6-month [email or web address] Not available 10/30/2023 08:24:39 04/17/2024 04/17/2024 blood work. Healthy lifestyle care instructions. Old records so that we can see about immunizations and screenings. Follow up in 4 months. [email or web address] Not available 05/05/2024 21:08:46 Plan of Treatment Reminders Order Date Submit Date Provider Last Modified By Organization Details Last Modified Time Details Appointments None recorded. Lab CBC w/ auto diff 2023 024 [email or web address] [facility], [address], [place], [address], 18:12:55 CMP, serum or plasma 2023 024 CLAY [facility], [address], [place], [address], 4 09:24:13 lipid panel, serum 2023 024 CLYA [facility], [address], [place], [address], 4 09:24:13 CBC w/ auto diff 2023 024 CLAY [facility], [address], [place], [address], 4 10:43:31 CMP, serum or plasma 2023 024 CLAY [facility]man, [address], [place], [address], 4 11:01:18 lipid panel, serum 2023 024 CLAY Aleman, [address], [place], [address], 4 18:41:17 TSH, ultra-sens itive, serum 2023 024 schuyler Aleman, [address], [place], [address], 4 17:55:28 T3, free, serum or plasma 2023 024 schuyler Aleman, [address], [place], [address], 4 17:55:28 unlisted lab - T4, free 2023 024 schuyler Aleman, [address], [place], [address], 17:55:28 Referral None recorded. Procedures None recorded. Surgeries None recorded. Imaging None recorded. Medication Orders None recorded. Patient TargetsNo targets recorded. Patient Instructions Encounter Date Encounter Id Patient Instructions Last Modified By Organization Details Last Modified Time 10/29/2023 [id number] A healthy lifestyle: care instructions Not available 10/29/2023 17:55:28 04/17/2024 [id number] A healthy lifestyle: care instructions [email or web address] Not available 04/17/2024 18:12:55 Reason for Referral None Reported. Results Created Date Observation Date Name Description Value Unit Range Abnormal Flag Note LastModifiedBy Organization Detail LastModifiedTime 10/31/19 24 10/31/2023 XR, chest No observ ation record ed. [address] [place], [address], 11/01/2023 09:03:03 10/31/19 24 10/31/2023 CT, angio gram, head + neck, w/wo contr ast No observ ation record ed. [address] [place], [address], 11/01/2023 09:03:04 10/31/19 24 10/31/2023 CT, angio gram, head, w/wo contr ast No observ ation record ed. [address] [place], [address], 11/01/2023 09:03:04 10/31/19 24 10/31/2023 CT, brain , w/o contr ast No observ ation record ed. [address] [place], [address], 11/01/2023 09:03:04 05/26/20 24 05/22/2024 cardi ac stres s test No observ ation record ed. [facility] [address], [place], [address], 05/28/2024 13:15:24 Result Notes None recorded. Problems Name Problem SNOMED Code Status Onset Date Resolution Date Notes Provider Name and Address Organization Details Recorded Time Essential hypertension 53890523 Active 2023 TANIA Cortés [place] - [facility] 16:41:14 Neck pain 21460753 Active 2023 TANIA Cortés, [place] - [facility] 16:41:20 History of transient ischemic attack 619292574 Active 2023 Alejandra Gamino MD Attn: Linh pina,[address] [facility], [place], [address], [facility] - [facility] 21:09:04 Hyperlipidemia 03449444 Active 2023 Alejandra Gamino MD Attn: Linh pina,[address] [facility], [place], [address], [facility] - [facility] 21:09:05 Obesity 105490084 Active 2023 Alejandra Gamino MD Attn: Linh pina,[address] [facility], [place], [address], [facility] - [facility] 21:09:07 Obstructive sleep apnea syndrome 01795388 Active 2023 Alejandra Gamino MD Attn: Linh pina,[address] [facility], [place], [address], [facility] - [facility] 21:09:20 Problem Notes None recorded. Procedures Surgical History Date Name Laterality Status Provider Name and Address Organization Details Recorded Time Hernia Repair completed Radha Box MA [facility] 10/29/2023 16:38:14 Knee Surgery completed Radha Box MA [facility] 10/29/2023 16:38:22 Imaging Results None recorded. Procedure Notes None recorded. Medical Equipment None Reported. Allergies No known drug allergies Medications Name Sig Start Date Stop Date Status Note LastModified by Organization Details LastModified Time atorvastatin 20 mg tablet TAKE 1 TABLET BY MOUTH EVERY DAY active Not Available Not Available No t Available clopidogrel 75 mg tablet TAKE 1 TABLET BY MOUTH EVERY DAY active Not Available Not Available No t Available amlodipine 5 mg tablet TAKE 1 TABLET BY MOUTH EVERY DAY active Not Available Not Available No t Available hydrocodone 10 mg-acetaminop hen 325 mg tablet TAKE 1 TABLET BY MOUTH EVERY 6 HOURS NEEDED FOR PAIN 10/28 completed Not Available Not Available Not Available aspirin 81 mg chewable tablet TAKE 1 TABLET BY MOUTH EVERY DAY active Not Available Not Available No t Available Vitals Date Recorded Body weight Body mass index (BMI) Body height Heart rate Oxygen saturation Oxygen saturation in Arterial blood by Pulse oximetry Systolic And Diastolic Provider Name and Address Organization Details Last Updated DateTime 720835. 91 g 34.6 kg/m2 180.34 cm 86 /min 96 % 96 % 118/78 mm[Hg] Radha Box MA [facility] 4 16:42:03 Date Recorded Body height Body mass index (BMI) Body weight Heart rate Oxygen saturation Oxygen saturation in Arterial blood by Pulse oximetry Systolic And Diastolic Provider Name and Address Organization Details Last Updated DateTime 180.34 cm 33.2 kg/m2 914570. 98 g 91 /min 97 % 97 % 122/84 mm[Hg] Gabbi Agustin MA [facility] 15:52:08 Social History Question Answer Notes LastModified by Organizat ion Details LastModified Time Tobacco Smoking Status Never Smoker Radha Box MA [facility], [facility] 10/29/2023 16:36:57 Do You Have An Advance Directive? No Information n ot available 10/29/2023 Are You Blind Or Do You Have Difficulty Seeing? No Information n ot available 10/29/2023 What Is Your Level Of Caffeine Consumption? Moderate Information not available 10/29/2023 In The 14 Days Before Symptom Onset, Have You Had Close Contact With A Laboratory-confirm ed COVID-19 While That Case Was Ill? No Information n ot available 04/17/2024 In The 14 Days Before Symptom Onset, Have You Had Close Contact With A Person Who Is Under Investigation For COVID-19 While That Person Was Ill? No Information not available 04/17/2024 Have You Been To An Area Known To Be High Risk For COVID-19? No Information not available 04/17/2024 Are You Deaf Or Do You Have Serious Difficulty Hearing? No Information not available 10/29/2023 What Type Of Diet Are You Following? REGULAR Information n ot available 10/29/2023 Are There Any Guns Present In Your Home? No Information not available 10/29/2023 What Was The Date Of Your Most Recent Tobacco Screening? 04/17/2024 Information not available 04/17/2024 What Is Your Relationship Status? Information not available 10/29/2023 Do You Use Your Seat Belt Or Car Seat Routinely? Yes Information not available 10/29/2023 Do You Have Smoke And Carbon Monoxide Detectors In Your Home? Yes Information not available 10/29/2023 Do You Use Sunscreen Routinely? Yes Information not available 10/29/2023 Has Tobacco Cessation Counseling Been Provided? No Information not available 10/29/2023 Sex: Male Functional Status Question Answer Note LastModified by Organizat ion Details LastModified Time Do you use any illicit or recreational drugs? No Information not available 10/29/2023 Do you or have you ever used any other forms of tobacco or nicotine? No Information not available 10/29/2023 What is your level of alcohol consumption? Occasional Information not available 10/29/2023 Are you currently employed? Yes Information not available 10/29/2023 Are you able to care for yourself? Yes Information not available 10/29/2023 What is your occupation? [employer] Information not available 10/29/2023 What is your exercise level? Moderate Information not available 10/29/2023 Mental Status Question Answer Note LastModified by Organization D etails LastModified Time Do you feel stressed (tense, restless, nervous, or anxious, or unable to sleep at night)? [id number] Information not available 10/29/2023 Family History Nothing Reported. Medical History Condition Response Coronary Artery Disease N Other N High Blood Pressure Y Atrial Fibrillation N Thyroid Problems N Kidney or Bladder Problems N GI Problems N Depression N COPD N Blood Clots N Skin Problems N Anemia N Heart Attack (MN) N Anxiety Disorder N Diabetes N Muscle, Joint, or Bone Problems N Seizures/Epilepsy N Acid Reflux (GERD) N Cancer N Stroke N Asthma N Allergies Y High Cholesterol Y Hepatitis N Liver Disease N Headaches N Osteoporosis N Heart Failure N Immunizations Vaccine Type Date Status Note Provider Nam e and Address Organization Details Recorded Time COVID-19, mRNA, LNP-S, PF, 30 mcg/0.3 mL dose 11/22/2020 completed Lizeth Alexander [place], [place] - [facility] 05/09/2024 10:24:21 COVID-19, mRNA, LNP-S, PF, 30 mcg/0.3 mL dose 12/13/2020 completed Lizeth Alexander MA [facility], [place] - [facility] 05/09/2024 10:24:21 Past Encounters Encounter ID Performer Location Encounter Start Date Encounter Closed Date Diagnosis/Indication Diagnosis SNOMED-CT Code Diagnosis ICD10 Code Diagnosis Note [id number] Alejandra Gamino MD [facility] - [place] [address] [place] [address] 10/29/2023 15:46:36 10/29/2023 17:34:38 Obesity 384426841 E66.9 Essential hypertension 94770316 I10 Neck pain 72776473 M54.2 Body mass index 30+ - obesity 276482150 Z68.30 [id number] Alejandra Gamino MD [facility] - [place] [address] [place] [address] 04/17/2024 14:31:33 04/17/2024 17:04:20 Obesity 468608796 E66.9 Essential hypertension 23228625 I10 Hyperlipidemia 84456981 E78.5 History of transient ischemic attack 257066387 Z86.73 Obstructiv e sleep apnea syndrome 62852203 G47.33 Health Concerns Section Related Observation LastModified by Organization Detai ls LastModified Time None Recorded Concern Status LastModified by Organization Details LastModified Time None Recorded Advance Directives Directive N: Payers Insurance Date Sequence Insurance Name Policy Number Policy Shanks Covered Member ID Shanks Member ID Guarantor Name 10/20/2024 1 [employer] (PPO) [id number] Nubia Jam [id number] Erick Polk 04/17/2024 1 [employer] - [employer] ([place]) [id number] Erick Polk [id number] Erick Polk Notes Date Note Type Note Provider Name and Address Organization Details Recorded Time 10/29/2023 text/html 58-year-old with hypertension and chronic back pain comes in for continuity of his medical problems he was to be referred back to his neck pain specialist he has been shots by them work for 7 years now things are coming back also he is having trouble losing weight has not really tried anything in the last year hypertension no chest pain or shortness of breath he believes he is up-to-date on his colon cancer screenings but is not sure about immunizations Alejandra Gamino MD Attn: Accounting[address] , [place], [address], [facility] 10/30/2023 08:24:56 04/17/2024 text/html hypertension no headache or dizziness TIA no stroke-like symptoms hyperlipidemia atorvastatin he is tolerating BRANDT CPAP Alejandra Gamino MD Attn: [address] , [place], [address], [facility] 05/05/2024 21:09:41
--- NOTE | 2025-01-08 09:33 | ED_ITS ---
HPI - Headache General Chief Complaint: Headache Stated Complaint: double/blurry vision, headache Time Seen by Provider: 01/08/25 09:23 History of Present Illness HPI Narrative: Pt presents with headache since 0700 today and had blurred vision and double vision when driving and became concerned and came to ER. Pt denies numbness or weakness on one side or speech issues. Related Data Allergies Allergy/AdvReac Type Severity Reaction Status Date / Time No Known Allergies Allergy Verified 01/08/25 09:28 Review of Systems 2 Review of Systems: All systems reviewed & are unremarkable except as noted in HPI and below PMFSH Social History Social History (Updated 03/11/20 @ 14:25 by Annia Avila MA) Smoking status: Light tobacco smoker Tobacco type: smokeless tobacco Smokeless tobacco user: chewing tobacco Alcohol intake: current Alcohol use details: Rarely Substance use: never Exam 2 Const: General: healthy appearing and no acute distress Nutritional Appearance: well nourished Orientation/consciousness: patient oriented x3 Limitations: no limitations HENMT: Head: normal to inspection Neck: Neck: normal visual inspection Chest: Chest palpation & inspection: normal inspection of the chest Resp: Effort & Inspection: normal respiratory effort Auscultation: clear to auscultation bilaterally Cardio: Rate: regular rate Rhythm: regular rhythm GI: GI Palp: Yes Soft to palpation Auscultation: normal bowel sounds Back/Spine/Pelvis: Back: no CVA tenderness Skin: General skin exam: normal color Rashes: no rashes Wounds: no wounds Neuro: General: patient oriented x3, moves all extremities, no focal motor deficits and CN's II-XI intact bilaterally Cranial nerves: Yes Nystagmus not present Speech: normal speech Extrem: General: normal to inspection and no clubbing, cyanosis or edema Psych: Mental Status: mental status grossly normal Affect: normal affect Attitude: cooperative Course Vital Signs Vital signs: Vital Signs Temperature 97.6 F 01/08/25 09:24 Pulse Rate 76 01/08/25 09:24 Respiratory Rate 16 01/08/25 09:24 Blood Pressure 188/98 H 01/08/25 09:24 Pulse Oximetry 97 01/08/25 09:24 Oxygen Delivery Room Air 01/08/25 09:24 Temperature 97.6 F 01/08/25 09:24 Pulse Rate 76 01/08/25 09:24 Respiratory Rate 16 01/08/25 09:24 Blood Pressure 188/98 H 01/08/25 09:24 Pulse Oximetry 97 01/08/25 09:24 Oxygen Delivery Room Air 01/08/25 09:24 MDM - Headache MDM Narrative Medical decision making narrative: Pt has KOCH with double vision onset this morning. Will treat KOCH with IV meds and get CT brain to rule out bleed and cta head and neck to rule out posteroir circulation stroke. cta neg pt feels better. will send home to rest and give neuro follow up if symptoms persist. Lab Data 01/08/25 10:08 Labs: Lab Results 01/08/25 Range/Units 10:08 Creatinine 0.80 (0.8-1.5) mg/dL Estim Creat Clear Calc 112 ml/min Estimated GFR > 60 (59 - ) Discharge Plan Discharge Clinical Impression: Headache Patient Disposition: Home Condition: Improved Instructions: Antibiotic Form, Acute Headache (ED) Patient Language: Mongolian Follow-up/Referrals: Stevenson,MD Ad [Primary Care Provider] - Mel Inman MD [Physician] -
[2025-01-08] MEDS: PROCHLORPERAZINE EDISYLATE 10 MG/2 ML VIAL IV PUSH (09:38)
[2025-01-08] MEDS: fentaNYL CITRATE INJ (*CRX) 100 MCG/2 ML VIAL 50 MCG IV PUSH (09:38)
--- OUTSIDE RECORDS SUMMARY | 2025-01-08 10:06 | XMS_ITS | Referral Summary ---
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
--- OUTSIDE RECORDS SUMMARY | 2025-01-08 10:06 | XMS_ITS | Clinical Summary ---
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
[2025-01-08 10:10] LABS: Estimated CRCL calculation 112 ml/min; Estimated Glomerular Filt Rate > 60
== END 2025-01-08 11:42 | disposition home or self-care (01) ==
PROVIDERS: Emergency Provider Emergency Medicine; PCP Internal Medicine
DX: R51.9 Headache, unspecified (principal); F17.220 Nicotine dependence, chewing tobacco, uncomplicated
CPT/HCPCS: 70496; 70498; 96374; 96375; 99284; J0780; J1200; J2919; J3010; Q9967